=== PATIENT | male | born 1990 | race African-American/Black ===

== ENCOUNTER 2017-11-23 19:04 | Emergency (ER) | payer SELFPAY ==
--- NOTE | 2017-11-23 19:45 | ER Document Report ---
ED General - General Mode of Arrival: Ambulatory Information source: Patient TRAVEL OUTSIDE OF THE [place] IN LAST 30 DAYS: No - HPI Patient complains to provider of: Cold like symptoms Onset: Other - 3 days ago Associated symptoms: Other - see notes above - General Chief Complaint: Chest Pain Stated Complaint: CHEST PAIN Time Seen by Provider: 11/23/17 19:36 Notes: 27-year-old male presents to the ED complaining of a productive cough, congestion, headache, diarrhea, and malaise that started 3 days ago. Patient denies shortness breath, vomiting, or fever. Patient denies any past medical history. (SANDRITA LUO) - Related Data Allergies/Adverse Reactions: No Known Allergies Allergy (Unverified 11/23/17 19:05) Past Medical History - General Information source: Patient - Social History Smoking Status: Current Every Day Smoker Chew tobacco use (# tins/day): No Frequency of alcohol use: Occasional Drug Abuse: None Family History: Hypertension, Other - Cancer Patient has suicidal ideation: No Patient has homicidal ideation: No - Medical History Medical History: Negative Renal/ Medical History: Denies: Hx Peritoneal Dialysis Review of Systems - Review of Systems Constitutional: See HPI, Malaise EENT: See HPI, Nose congestion Cardiovascular: No symptoms reported Respiratory: See HPI, Cough Gastrointestinal: See HPI, Diarrhea Genitourinary: No symptoms reported Male Genitourinary: No symptoms reported Musculoskeletal: No symptoms reported Skin: No symptoms reported Hematologic/Lymphatic: No symptoms reported Neurological/Psychological: See HPI, Headaches -: Yes All other systems reviewed and negative Physical Exam - Vital signs Vitals: Temp Pulse Resp BP Pulse Ox 99.3 F 82 16 133/67 H 98 11/23/17 19:09 11/23/17 19:09 11/23/17 19:09 11/23/17 19:09 11/23/17 19:09 - Notes Notes: GENERAL: Alert, interacts well. No acute distress. HEAD: Normocephalic, atraumatic. EYES: Pupils equal, round, and reactive to light. Extraocular movements intact. ENT: Oral mucosa moist, tongue midline. Nares patent, no nasal septal hematoma, TM's intacts. Left TM is retracted and injected with clear fluid behind. Right TM is retracted, injected with cloudy fluid behind. Turbinate edema to the nasal cavities right greater than left. Clear rhinorrhea. NECK: Full range of motion. Supple. Trachea midline. LUNGS: Clear to auscultation bilaterally, no wheezes, rales, or rhonchi. No respiratory distress. HEART: Regular rate and rhythm. No murmurs, gallops, or rubs. ABDOMEN: Soft, non-tender. Non-distended. Bowel sounds present in all 4 quadrants. EXTREMITIES: Moves all 4 extremities spontaneously. No edema, radial pulses 2/4 bilaterally. No cyanosis. NEUROLOGICAL: Alert and oriented x3. Normal speech. PSYCH: Normal affect, normal mood. SKIN: Warm, dry, normal turgor. No rashes or lesions noted. (SANDRITA LUO) Course - Re-evaluation Re-evalutation: 11/23/17 19:45 Consistent with viral upper respiratory infection with cough. Patient encouraged to use nasal steroids, Benadryl and Sudafed, prescribed Tessalon Perle. Discharged home. No evidence of pneumonia, no abnormal vital signs. ( PAOLA ROWLEY) - Vital Signs Vital signs: Temp Pulse Resp BP Pulse Ox 99 F 72 20 118/73 100 11/23/17 20:00 11/23/17 20:00 11/23/17 20:00 11/23/17 20:00 11/23/17 20:00 Discharge - Discharge Clinical Impression: Viral upper respiratory tract infection with cough, Elevated blood pressure reading Condition: Stable Disposition: HOME, SELF-CARE Additional Instructions: Upper Respiratory Illness You have a viral infection of the respiratory passages -- a "cold." This common infection causes nasal congestion, drainage, and often sore throat and cough. It is caused by a virus and is highly contagious. The disease usually lasts a week or more, though the worst symptoms are usually over in 3 or 4 days. There is no "cure" for the viral infection -- it must run its course. If there is a complication, such as bacterial infection in the nose, sinuses, middle ear, or bronchial tubes, antibiotics may be required, but antibiotics won 't affect the virus. If you smoke, you should STOP!! Drink plenty of fluids. A humidifier may help. An expectorant medication or decongestant may make you more comfortable. Use acetaminophen or ibuprofen for fever or aches. See the doctor if fever persists over two or three days, if there is any significant worsening of your symptoms, or if you simply fail to improve as expected. Please use nasal saline rinses such as a NetiPot or NeilMed Sinus Rinses. Please use nasal steroids such as Nasonex or Flonase 1 squirt per nostril twice a day. These are available [id number] without a prescription. You may also use Benadryl and Sudafed [id number] as directed on the box. I have prescribed Tessalon Perles, these are cough suppressant drops that will help to take care of your cough. Prescriptions: Benzonatate [Tessalon Perles 100 mg Capsule] 100 mg PO Q8HP PRN #40 capsule PRN Reason: Forms: Elevated Blood Pressure Referrals: RADHA TAI MD [ACTIVE STAFF] - Follow up in 1 week Scribe Attestation: 11/23/17 21:05 I personally performed the services described in the documentation, reviewed and edited the documentation which was dictated to the scribe in my presence, and it accurately records my words and actions. (PAOLA ROWLEY) Scribe Documentation - Scribe Written by Malathie:: Deep Alves, [id number] acting as scribe for :: Molly
[2017-11-23 20:03] VITALS: BP 118/73
--- NOTE | 2017-11-23 21:57 | EKG REPORT ---
SEVERITY:- NORMAL ECG - SINUS RHYTHM : Confirmed by: Nick Floyd 23-Nov-2017 21:57:11
== END 2017-11-23 20:04 | disposition home or self-care (01) ==
LOC: ER 19:04
DX: J06.9 Acute upper respiratory infection, unspecified (principal); B97.89 Other viral agents as the cause of diseases classified elsewhere; R03.0 Elevated blood-pressure reading, without diagnosis of hypertension; R05 Cough; R51 Headache; R19.7 Diarrhea, unspecified; R53.81 Other malaise; F17.200 Nicotine dependence, unspecified, uncomplicated; R09.81 Nasal congestion; J34.89 Other specified disorders of nose and nasal sinuses
CPT/HCPCS: 93005; 93010; 99285